=== PATIENT | male | born 1995 | race Caucasian/White ===

== ENCOUNTER 2018-09-20 19:03 | Emergency (ER) | payer OTHER ==
--- NOTE | 2018-09-20 19:19 | EDPHY ---
H & P Stated Complaint: rlq abd pin Time Seen by Provider: 09/20/18 19:15 HPI/ROS: HPI: This is a 23-year-old male who presents with Chief Complaint: Right lower quadrant pain Location: Right lower quadrant Quality: Cramping, sharp pain Duration: Since Wednesday Signs and Symptoms: no fever, no nausea, no vomiting, no hematemesis, no blood in stool, no abdominal bloating, no diarrhea, no back pain, no urinary symptoms , no testicular/groin pain, no indigestion, no chest pain, no shortness of breath Timing: Acute, worse today Severity: [id number] Context: Patient is a student at [employer], presents accompanied by his father with complaints of waking up Wednesday morning with right lower quadrant pain that is nonradiating in nature and has been present for several days. He does report that the pain may be mildly worse today. He denies fever, nausea, vomiting, diarrhea, urinary symptoms, testicular groin pain. He is able to eat and drink without any difficulty. No recent heavy lifting or exercise activities. Parents are concerned about appendicitis. Modifying Factors: None Comment: ROS: A comprehensive 10 system review of systems is otherwise negative aside from elements mentioned in the history of present illness. MEDICAL/SURGICAL/SOCIAL HISTORY: Medical history: Generally healthy. Does not take any regular medications. Surgical history: Denies Social history: Student at [employer]. Denies alcohol, tobacco, drug use. Family history noncontributory. CONSTITUTIONAL: Thin, nontoxic-appearing, talkative young adult white male, father at bedside, awake and alert, no obvious distress HEENT: Atraumatic and normocephalic, PERRL, EOMI. Nares patent; no rhinorrhea; no nasal mucosal edema. Tympanic membranes clear. Oropharynx clear, no exudate and moist pink mucosa. Airway patent. No lymphadenopathy. No meningismus. Cardiovascular: Normal S1/S2, regular rate, regular rhythm, without murmur rub or gallop. PULMONARY/CHEST: Symmetrical and nontender. Clear to auscultation bilaterally. Good air movement. No accessory muscle usage. ABDOMEN: Soft, nondistended, mild right lower quadrant tenderness to deep palpation, no rebound, no guarding, no peritoneal signs, no masses or organomegaly. No CVAT. Hyperactive bowel sounds heard x4 quadrants. Negative Rovsing sign. Negative psoas sign. EXTREMITIES: 2/2 pulses, strength 5/5, right HIP: Flexion to 125, extension to 115, hyper extension to 15, abduction to 45. Pain with internal rotation and external rotation. No tenderness over greater trochanter. no deformities, no clubbing, no cyanosis or edema. NEUROLOGICAL: no focal neuro deficits. GCS 15. SKIN: Warm and dry, no erythema. no rash. Good capillary refill. Source: Patient, Family (father) Exam Limitations: No limitations - Personal History Current Tetanus/Diphtheria Vaccine: Yes Current Tetanus Diphtheria and Acellular Pertussis (TDAP): Yes - Medical/Surgical History Hx Asthma: Yes Hx Chronic Respiratory Disease: No Hx Diabetes: No Hx Cardiac Disease: No Hx Renal Disease: No Hx Cirrhosis: No Hx Alcoholism: No Hx HIV/AIDS: No Hx Splenectomy or Spleen Trauma: No - Social History Smoking Status: Never smoked Constitutional: Initial Vital Signs Temperature (C) 36.7 C 09/20/18 19:05 Heart Rate 56 L 09/20/18 19:05 Respiratory Rate 18 09/20/18 19:05 Blood Pressure 153/96 H 09/20/18 19:05 O2 Sat (%) 96 09/20/18 19:05 O2 Delivery Mode Room Air Allergies/Adverse Reactions: No Known Allergies Allergy (Unverified 05/20/15 20:29) Home Medications: Medication Instructions Recorded NK [No Known Home Meds] 09/20/18 Medical Decision Making - Diagnostics Imaging Results: Imaging Impressions Abdomen Ultrasound 09/20/18 19:24 Impression: Appendix not visualized. Findings discussed with Emergency Department physician, Leslie Fuentes PA-C, on September 20, [address] 09/20/18 21:02 Impression: 1. Normal appendix. 2. Query gastroenteritis. Trace free fluid in the pelvis and mild dysmotile bowel gas pattern. No abscess or evidence of obstruction. Findings discussed with Emergency Department Physician Engineering Administrator, JEANNE Aparicio, on September 20, 2018 at 2159. ED Course/Re-evaluation: Vital signs reviewed and stable upon arrival. No systemic signs. IV access, laboratory studies, urinalysis, abdominal limited ultrasound ordered 1954: Laboratory studies reviewed. No signs of leukocytosis/anemia/platelet dysfunction/ROBB/elevated LFTs/electrolyte imbalance/pancreatitis. 2022: Urinalysis unremarkable 2107: Notified by radiologist that abdominal ultrasound unable to visualize the appendix secondary to nonobstructive bowel gas pattern. 2109: Spoke with family and father at bedside regarding inability to visualize the appendix with ultrasound. Decision made to obtain CT abdomen and pelvis scan for further evaluation. Patient remains with mild pain. 2214: Called by Dr. Sims who reports that CT abdomen and pelvis scan shows no signs of appendicitis, no inflammatory bowel disease like Crohn's, no obstruction, no perforation, no free air, no gallbladder disease, no diverticulitis. It does show nonobstructive bowel gas pattern with moderate stool burden. Findings discussed at bedside with patient and mother and father. Reassurance provided and advised supportive care. This patient was seen under the supervision of my primary supervising physician. I evaluated and cared for this patient independently. Differential Diagnosis: Abdominal pain including but not limited to appendicitis, cholecystitis, gastritis and urinary tract infection. - Data Points Laboratory Results: Laboratory Results 09/20/18 19:15 09/20/18 19:15 09/20/18 09/20/18 09/20/18 19:50 19:15 19:15 WBC 5.75 10^3/uL 10^3/uL (3.80-9.50) RBC 5.52 10^6/uL 10^6/uL (4.40-6.38) Hgb 16.5 g/dL g/dL (13.7-17.5) Hct 48.2 % % (40.0-51.0) MCV 87.3 fL fL (81.5-99.8) MCH 29.9 pg pg (27.9-34.1) MCHC 34.2 g/dL g/dL (32.4-36.7) RDW 11.9 % % (11.5-15.2) Plt Count 210 10^3/uL 10^3/uL (150-400) MPV 9.2 fL fL (8.7-11.7) Neut % (Auto) 51.3 % % (39.3-74.2) Lymph % (Auto) 39.5 % % (15.0-45.0) [place] % (Auto) 7.3 % % (4.5-13.0) Eos % (Auto) 1.0 % % (0.6-7.6) Baso % (Auto) 0.9 % % (0.3-1.7) Nucleat RBC Rel Count 0.0 % % (0.0-0.2) Absolute Neuts (auto) 2.95 10^3/uL 10^3/uL (1.70-6.50) Absolute Lymphs (auto) 2.27 10^3/uL 10^3/uL (1.00-3.00) Absolute Monos (auto) 0.42 10^3/uL 10^3/uL (0.30-0.80) Absolute Eos (auto) 0.06 10^3/uL 10^3/uL (0.03-0.40) Absolute Basos (auto) 0.05 10^3/uL 10^3/uL (0.02-0.10) Absolute Nucleated RBC 0.00 10^3/uL 10^3/uL (0-0.01) Immature Gran % 0.0 % % (0.0-1.1) Immature Gran # 0.00 10^3/uL 10^3/uL (0.00-0.10) Sodium 138 mEq/L mEq/L (135-145) Potassium 3.7 mEq/L mEq/L (3.5-5.2) Chloride 100 mEq/L mEq/L (97-110) Carbon Dioxide 25 mEq/l mEq/l (22-31) Anion Gap 13 mEq/L mEq/L (6-14) BUN 14 mg/dL mg/dL (7-23) Creatinine 1.0 mg/dL mg/dL (0.7-1.3) Estimated GFR > 60 Glucose 111 mg/dL H mg/dL (70-100) Calcium 10.2 mg/dL mg/dL (8.5-10.4) Total Bilirubin 1.1 mg/dL mg/dL (0.1-1.4) Conjugated Bilirubin 0.2 mg/dL mg/dL (0.0-0.5) Unconjugated Bilirubin 0.9 mg/dL mg/dL (0.0-1.1) AST 27 IU/L IU/L (17-59) ALT 28 IU/L IU/L (21-72) Alkaline Phosphatase 102 IU/L IU/L (38-126) Total Protein 8.3 g/dL H g/dL (6.3-8.2) Albumin 5.6 g/dL H g/dL (3.5-5.0) Lipase 120 IU/L IU/L (23-300) Urine Color PALE YELLOW Urine Appearance CLEAR Urine pH 6.0 (5.0-7.5) Ur Specific [place] 1.008 (1.002-1.030) Urine Protein NEGATIVE (NEGATIVE) Urine Ketones NEGATIVE (NEGATIVE) Urine Blood NEGATIVE (NEGATIVE) Urine Nitrate NEGATIVE (NEGATIVE) Urine Bilirubin NEGATIVE (NEGATIVE) Urine Urobilinogen NEGATIVE EU EU (0.2-1.0) Ur Leukocyte Esterase NEGATIVE (NEGATIVE) Urine Glucose NEGATIVE (NEGATIVE) Departure - Departure Disposition: Home, Routine, Self-Care Clinical Impression: Right lower quadrant abdominal pain, Muscular abdominal pain in right flank, Abdominal gas pain Condition: Good Instructions: Gas and Bloating (ED), Abdominal Pain (ED) Additional Instructions: Take Tylenol 650 mg every 4 hours and/or Ibuprofen 600 mg every 8 hours with food as needed for pain. Consume a minimum of 8-10 glasses of water or electrolyte fluid replacement drinks that include Gatorade, Powerade, Pedialyte. Eat a bland diet for the next 48 hours and then slowly advance as tolerated. Take [id number] simethicone or Gas-X as needed for abdominal gas pain. Referrals: Ginny Gómez MD [Primary Care Provider] - As per Instructions
[2018-09-20 19:29] LABS: PLATELET COUNT 210 10^3/uL (150-400)
[2018-09-20] MEDS ORDERED: IOPAMIDOL (ISOVUE-300) 100 ML BTL ONE (21:06)
[2018-09-20 22:29] VITALS: BP 129/80
== END 2018-09-20 22:29 | disposition home or self-care (01) ==
DX: R10.31 Right lower quadrant pain (principal); R14.0 Abdominal distension (gaseous)
CPT/HCPCS: Q9967